=== PATIENT | female | born 1970 | race Caucasian/White ===

== ENCOUNTER → 2018-05-24 08:07 | Outpatient (CLI) | payer OTHER, SELFPAY ==
--- NOTE | 2018-05-24 08:08 | DI.US.S_ITS ---
PROCEDURE: US RENAL COMPLETE INDICATIONS: flank pain TECHNIQUE: Real-time scanning was performed of the kidneys and bladder, with image documentation. COMPARISON: [facility], OB COMPLETE LESS THAN 14 WKS, 01/01/2012, 11:05. [facility], OBSTETRICAL LTD, 07/12/2012, 12:39. [facility], RENAL COMPLETE, 12/30/2014, 10:52. [facility], RENAL COMPLETE, 04/03/2014, 10:33. FINDINGS: Kidneys: Kidneys are normal in size. Right kidney measures 11.1 cm long; left kidney measures 12.1 cm long. Right renal cortical thickness is 1.7 cm; left renal cortical thickness is 2.0 cm. Renal cortical echotexture is normal. No hydronephrosis or nephrolithiasis. No suspicious solid mass lesions. There is a small echogenic focus within the anterior cortex of the right mid kidney, measuring up to 6 x 7 x 6 mm. This has been previously present in 2013 and 2014 with no significant change in size. Bladder: Pre-void bladder volume is 214 mL. Post-void residual is 31 mL. Pre-void images demonstrate no intraluminal masses or stones. On pre-void images, bilateral ureteral jets are noted with color Doppler interrogation. (Of note, ureteral jets may not be detectable in up to 25% of cases due to insufficient differences in specific gravity between ureteral and bladder urine). Miscellaneous: No free pelvic fluid. IMPRESSION: A definite source of flank pain is not seen. Incidental note is again made of an echogenic focus within the right mid kidney consistent with angiomyolipoma stable over time from 04/03/14 and 12/30/14. Normal bladder function. Dictated by: Ramirez Marti M.D. on 05/24/2018 at 10:14 Approved by: Ramirez Marti M.D. on 05/24/2018 at 10:18
== END ==
PROVIDERS: PCP Family Medicine; Visit Provider Family Medicine
DX: D30.01 Benign neoplasm of right kidney (principal)
CPT/HCPCS: 76770

== ENCOUNTER → 2018-12-27 10:35 | Outpatient (CLI) | payer OTHER, SELFPAY ==
--- NOTE | 2018-12-27 | DI.US.S_ITS ---
PROCEDURE: US THYROID INDICATIONS: NONTOXIC MULTINODULAR GOITER TECHNIQUE: Real-time scanning was performed of the thyroid gland, with image documentation. COMPARISON: [facility], US, THYROID, 12/30/2014, 11:01. FINDINGS: Right: Thyroid lobe measures 6.2 x 2.4 x 2.1 cm, and is homogeneous in echotexture. Left: Thyroid lobe measures 6.2 x 1.9 x 2.1 cm, and is homogenous in echotexture. Isthmus: 8-9 mm thick. Nodule number: 1 Location: Right middle lobe Size: 1.5 x 1.5 x 1.2 cm. (previously 0.9 x 0.9 x 0.7 cm) Composition: Solid Echogenicity: Hypoechoic Shape: wider than tall. Margins: Smooth Echogenic foci: None Total points: 4 ACR TI-RADS category: Moderately suspicious IMPRESSION: Right thyroid nodule as above. Given increase in size, ultrasound-guided FNA recommended ACR TI-RADS definitions and recommendations: TI-RADS 1 (benign): 0 points. FNA not needed. TI-RADS 2 (not suspicious): 2 points. FNA not needed. TI-RADS 3 (mildly suspicious): 3 points. * FNA if 2.5 cm or larger, follow up if 1.5 cm or larger (at 1, 3, and 5 years). TI-RADS 4 (moderately suspicious): 4-6 points. * FNA if 1.5 cm or larger, follow up if 1 cm or larger (at 1, 2, 3, and 5 years). TI-RADS 5 (highly suspicious): 7 points or more. * FNA if 1 cm or larger, follow up if 0.5 cm or larger (every year for 5 years). Dictated by: Dung Welsh M.D. on 12/27/2018 at 14:44 Approved by: Dung Welsh M.D. on 12/27/2018 at 14:47
[2018-12-27 13:29] LABS: TSH w/ Reflex to FT4 0.61 uIU/mL (0.47-4.68)
== END ==
PROVIDERS: PCP Family Medicine; Visit Provider Nurse Practitioner
DX: E04.1 Nontoxic single thyroid nodule (principal)
CPT/HCPCS: 36415; 76536; 84443

== ENCOUNTER → 2019-01-02 14:25 | Outpatient (CLI) | payer OTHER, SELFPAY ==
--- NOTE | 2019-01-02 14:26 | DI.RAD.S_ITS ---
PROCEDURE: XR KNEE LT 3V INDICATIONS: anterior knee pain, exam suggests chrondromalacia patella TECHNIQUE: 3 views of the knee were acquired. COMPARISON: None. FINDINGS: Bones: No fractures or dislocations. No suspicious bony lesions. Soft tissues: No joint effusion. No suspicious soft tissue calcifications. IMPRESSION: Negative exam. No osseous abnormality demonstrated. Dictated by: Tae Sheth M.D. on 01/02/2019 at 14:53 Approved by: Tae Sheth M.D. on 01/02/2019 at 14:54
== END ==
PROVIDERS: PCP Family Medicine; Visit Provider Family Medicine
DX: M22.42 Chondromalacia patellae, left knee (principal); M25.562 Pain in left knee
CPT/HCPCS: 73562

== ENCOUNTER → 2019-05-02 10:59 | Outpatient (CLI) | payer OTHER, SELFPAY ==
[2019-05-02 12:52] LABS: Free T3, Triiodothyronine Free 2.81 pg/mL (2.77-5.27)
[2019-05-02 13:05] LABS: Thyroid Stimulating Hormone 1.54 uIU/mL (0.47-4.68)
== END ==
PROVIDERS: PCP Family Medicine; Visit Provider Family Medicine
DX: Z90.09 Acquired absence of other part of head and neck (principal)
CPT/HCPCS: 36415; 84439; 84443; 84481

== ENCOUNTER → 2020-03-03 16:13 | Outpatient (CLI) | payer OTHER, SELFPAY ==
--- NOTE | 2020-03-03 | DI.MG.S_ITS ---
BILATERAL DIGITAL SCREENING MAMMOGRAM 3D/2D WITH CAD: 03/03/2020 CLINICAL: Routine screening. Comparison is made to exams dated: 07/25/2017 mammogram, 06/29/2017 mammogram - [facility], 09/03/2014 mammogram, and 10/27/2010 mammogram - [facility]. There are scattered fibroglandular elements in both breasts. Current study was also evaluated with a Computer Aided Detection (CAD) system. There is a biopsy clip in both breasts. No significant masses, calcifications, or other findings are seen in either breast. There has been no significant interval change. IMPRESSION: NEGATIVE There is no mammographic evidence of malignancy. A 1 year screening mammogram is recommended. This exam was interpreted at Station ID: [id number]. NOTE: For mammograms, a report in lay terms will be sent to the patient. Approximately 15% of breast malignancies will not be visualized mammographically. In the management of a palpable breast mass, a negative mammogram must not discourage biopsy of a clinically suspicious lesion. Electronically Signed By: Tae lofton/george:03/03/2020 17:05:10 letter sent: Normal Exam ACR BI-RADS Category 1: Negative 3341F
== END ==
PROVIDERS: PCP Family Medicine; Referring Provider Family Medicine; Visit Provider Family Medicine
DX: Z12.31 Encounter for screening mammogram for malignant neoplasm of breast (principal)
CPT/HCPCS: 77063; 77067

== ENCOUNTER → 2020-05-08 11:30 | Outpatient (CLI) | payer OTHER, SELFPAY | PROVIDERS: PCP Family Medicine; Referring Provider Family Medicine; Visit Provider Family Medicine | DX: N39.0 Urinary tract infection, site not specified (principal) | CPT/HCPCS: 87077; 87086; 87186 ==

== ENCOUNTER → 2021-12-22 13:38 | Outpatient (CLI) | payer OTHER, SELFPAY | PROVIDERS: PCP Family Medicine; Visit Provider Physician Assistant | DX: J02.9 Acute pharyngitis, unspecified (principal) | CPT/HCPCS: 87070 ==

== ENCOUNTER → 2021-12-30 09:59 | Outpatient (CLI) | payer OTHER, SELFPAY ==
[2021-12-30 11:00] LABS: Add Manual Diff / Slide Review NO; Basophils Absolute Auto 0 /uL (0-100); Basophils Percent Auto 0.5 % (0-2); Eosinophils Absolute Auto 300 /uL (0-450); Eosinophils Percent Auto 3.9 % (2-4); Hematocrit 35.3 % (36-46); Hemoglobin 11.7 g/dL (12.0-16.0); Lymphocytes Absolute Auto 1600 /uL (1100-4500); Lymphocytes Percent Auto 23.6 % (25-40); Mean Corpuscular HGB Conc 33.3 % (30-36); Mean Corpuscular Hemoglobin 27.7 PG (26-34); Mean Corpuscular Volume 83.2 fL (80-100); Monocytes Absolute Auto 400 /uL (0-900); Neutrophils Absolute Auto 4400 /uL (1500-7000); Platelet Count 277 X10^3/uL (150-400); Red Blood Cell Count 4.24 X10^6/uL (4.0-5.2); Red Cell Distribution Width 13.9 % (11.6-14.8); White Blood Cell Count 6.7 X10^3/uL (4.5-11.0)
[2021-12-30 11:45] LABS: Alanine Aminotransferase 22 IU/L (<35); Albumin 4.1 g/dL (3.5-5.0); Albumin Globulin Ratio 1.2 (1.0-2.8); Alkaline Phosphatase 78 U/L (38-126); Aspartate Aminotransferase 22 IU/L (14-36); BUN Creatinine Ratio 16.2 (6-22); Bilirubin Total 0.4 mg/dL (0.2-1.3); Blood Urea Nitrogen 11 mg/dL (7-17); Calcium 8.7 mg/dL (8.4-10.2); Carbon Dioxide 27 mmol/L (22-32); Chloride 102 mmol/L (98-107); Cholesterol 147 mg/dL (140-199); Estimated Glomerular Filt Rate > 60 mL/min (>60); Globulin 3.3 g/dL (1.7-4.1); Glucose 101 mg/dL (70-100); HDL Cholesterol 48 mg/dL (40-60); HEMOLYSIS < 15 (0-50); LDL Cholesterol Calculated 88 mg/dL (<100); Potassium 4.2 mmol/L (3.4-5.1); Sodium 134 mmol/L (137-145); Total Protein 7.4 g/dL (6.3-8.2); Triglycerides 53 mg/dL (35-150)
[2021-12-30 12:05] LABS: Free T3, Triiodothyronine Free 3.46 pg/mL (2.77-5.27); Free T4, Direct Thyroxine 1.07 ng/dL (0.78-2.19)
[2021-12-30 12:19] LABS: TSH w/ Reflex to FT4 0.77 uIU/mL (0.47-4.68)
== END ==
PROVIDERS: PCP Family Medicine; Referring Provider Family Medicine; Visit Provider Family Medicine
DX: E07.9 Disorder of thyroid, unspecified (principal); E89.0 Postprocedural hypothyroidism; F33.42 Major depressive disorder, recurrent, in full remission; R51.9 Headache, unspecified
CPT/HCPCS: 36415; 80053; 80061; 84439; 84443; 84481; 85025

== ENCOUNTER → 2022-02-01 09:16 | Outpatient (CLI) | payer OTHER, SELFPAY ==
--- NOTE | 2022-02-01 09:19 | DI.MG.S_ITS ---
BILATERAL DIGITAL SCREENING MAMMOGRAM 3D/2D WITH CAD: 02/01/2022 CLINICAL: Routine screening. Comparison is made to exams dated: 03/03/2020 mammogram and 06/29/2017 mammogram - [facility]. There are scattered areas of fibroglandular density in both breasts (category b / 25%-50% glandular tissue). Current study was also evaluated with a Computer Aided Detection (CAD) system. There is a biopsy clip in both breasts. No significant masses, calcifications, or other findings are seen in either breast. There has been no significant interval change. IMPRESSION: NEGATIVE There is no mammographic evidence of malignancy. A 1 year screening mammogram is recommended. Based on the Tyrer Cuzick model (a risk assessment model) the patient's lifetime risk is 9.6% and her 10 year risk is 2.5%. According to the ACR, ACS, and NCCN guidelines, an annual breast MRI exam along with mammogram is recommended if the patient's lifetime risk is 20% or greater. This exam was interpreted at Station ID: [id number]. NOTE: For mammograms, a report in lay terms will be sent to the patient. Approximately 15% of breast malignancies will not be visualized mammographically. In the management of a palpable breast mass, a negative mammogram must not discourage biopsy of a clinically suspicious lesion. Electronically Signed By: Tae lofton/george:02/01/2022 09:55:21 letter sent: Normal Exam ACR BI-RADS Category 1: Negative 3341F
== END ==
PROVIDERS: PCP Family Medicine; Referring Provider Family Medicine; Visit Provider Family Medicine
DX: Z12.31 Encounter for screening mammogram for malignant neoplasm of breast (principal)
CPT/HCPCS: 77063; 77067

== ENCOUNTER → 2022-03-20 08:33 | Outpatient (CLI) | payer OTHER, SELFPAY ==
[2022-03-20 10:32] LABS: Clostridium Difficile Tox PCR Negative for C. diff (Negative)
== END ==
PROVIDERS: PCP Family Medicine; Referring Provider Nurse Practitioner Family; Visit Provider Nurse Practitioner Family
DX: R19.7 Diarrhea, unspecified (principal)
CPT/HCPCS: 87045; 87329; 87493; 87899

== ENCOUNTER → 2022-03-25 09:50 | Outpatient (CLI) | payer OTHER, SELFPAY | PROVIDERS: PCP Family Medicine; Referring Provider Family Medicine; Visit Provider Family Medicine | DX: K52.9 Noninfective gastroenteritis and colitis, unspecified (principal) | CPT/HCPCS: 87177 ==

== ENCOUNTER → 2022-05-12 15:26 | Outpatient (CLI) | payer OTHER, SELFPAY ==
[2022-05-12 16:40] LABS: COVID19 -Nasal RAPID Negative (Negative)
== END ==
PROVIDERS: PCP Family Medicine; Visit Provider Surgery
DX: Z01.812 Encounter for preprocedural laboratory examination (principal); Z20.822 Contact with and (suspected) exposure to COVID-19
CPT/HCPCS: 87635; C9803

== ENCOUNTER 2022-05-15 10:43 | Day surgery (SDC) | payer OTHER, SELFPAY ==
[2022-05-15] VITALS (8 sets, daily range): BP systolic 82–124; BP diastolic 43–69; PULSE 58–76; RESP 12–16; TEMP 36.1–36.8; O2SAT 94–99; BMI 26.6
[2022-05-15] MEDS: LACTATED RINGERS 1,000 ML 84 ML IV (11:18)
--- NOTE | 2022-05-15 11:39 | PM.HP.1 ---
History of Present Illness History of Present Illness Date Patient Seen: 05/15/22 Time Patient Seen: 11:39 Chief complaint: SCREENING COLONOSCOPY Narrative: First colonoscopy for colon cancer screening. no family history for colon cancer. No symptoms Patient History Medical History Depression depression (2012) Thyroid mass (2009) Vaginal delivery Surgical History No history of previous surgery (02/08/15) Family & Social History Family History Father Hypertension High cholesterol Heart attack Grandfather Cancer Lung cancer Grandmother Age: 99 Dementia Grandmother Stroke Mother No problems noted. Grandfather No problems noted. Sister No problems noted. Social History: household members spouse,family lives independently Yes caregiver/support person No Tobacco & Substance use: Smoking Status Never smoker alcohol intake current alcohol intake frequency holiday/special occasion Substance Use Type does not use Meds Home Medications and Allergies Home Medications Medication Instructions Recorded Confirmed Type sertraline 50 mg tablet 50 mg PO DAILY #90 tabs 05/11/22 05/15/22 Rx Allergies Allergy/AdvReac Type Severity Reaction Status Date / Time No Known Drug Allergies Allergy Verified 05/15/22 10:59 Review of Systems Review of Systems ROS: Yes All systems reviewed with the patient and are negative except as otherwise documented Exam Vital Signs (past 8 hours): - 05/15/22 11:08 Temperature 97.1 F L Pulse Rate 76 Respiratory Rate 16 Blood Pressure 124/69 Pulse Oximetry 99 Oxygen Delivery Method Room Air Oxygen Delivery Method Room Air Const General: cooperative and healthy appearing [facility] Head: normal to inspection, normocephalic and atraumatic Throat: posterior oropharynx normal Eyes General: appearance normal, both eyes and all related structures Neck Neck: trachea midline Chest Chest: normal inspection of the chest Resp Effort & Inspection: normal respiratory effort and able to speak in complete sentences Cardio Rate: regular rate Rhythm: regular rhythm GI Inspection: normal to inspection Palpation: soft Skin General: turgor normal Neuro General: patient oriented x3 Cognition: normal cognition Extrem General: full ROM Psych Mental Status: mental status grossly normal Judgment: judgment good Assessment & Plan Assessment & Plan narrative: colon cancer screening using moderate sedation. COVID-19 COVID-19 status: Negative Time Spent With Patient Time with patient: less than 30 minutes Critical Care time: I spent a total of [] minutes of critical care time on this patient's care today; this time is exclusive of procedural time.
--- NOTE | 2022-05-15 11:46 | PM.OP.COLON ---
Operative Date/Time/Diagnoses Date of procedure: 05/15/22 Time of procedure: 11:46 Pre-op diagnosis: colon cancer screening Post-op diagnosis: same Procedure & Clinicians Study performed: colonoscopy Same procedure as scheduled: Yes Indications: colon cancer screening Surgeon: Susu Martinez Procedure Notes Procedure in detail: Preop diagnosis: Colon cancer screening Postop diagnosis: Same Operative procedure: Colonoscopy with moderate sedation Surgeon: Rachael Martinez MD Anesthetic: Versed 5 mg fentanyl 125 mcg Findings: No polyps. No diverticulosis. Procedure: Patient placed in a lateral position. Rectal exam performed showing normal tone no masses. Colonoscope inserted into the rectum and advanced to ileocecal valve with minimal difficulty. Insufflation extraction scope and the above findings. Retroflex was included in the rectum. Impression: Normal colonoscopy. No polyps identified Plan: Repeat colonoscopy in 10 years unless otherwise indicated by change in clinical condition Sedation minutes: 13 Specimen(s): none sent Complications: none Impression: No polyps, no diverticulosis Post-procedure Recommendations: Colonoscopy in 10 years Follow up: as needed Disposition: PACU
[2022-05-15] MEDS: fentaNYL 100 MCG/2 ML INJ 125 MCG IM (11:52)
[2022-05-15] MEDS: MIDAZOLAM 5 MG/5 ML VIAL IV (11:52)
== END 2022-05-15 12:50 | disposition home or self-care (01) ==
PROVIDERS: PCP Family Medicine; Referring Provider Surgery; Visit Provider Surgery
PROC: 0DJD8ZZ Inspection of Lower Intestinal Tract, Via Natural or Artificial Opening Endoscopic (ICD-10-PCS; CPT 45378; principal; 2022-05-15 13:15)
DX: Z12.11 Encounter for screening for malignant neoplasm of colon (principal)
CPT/HCPCS: 45378; J2250; J3010

== ENCOUNTER → 2022-06-13 10:16 | Outpatient (CLI) | payer OTHER, SELFPAY ==
--- NOTE | 2022-06-13 10:17 | DI.US.S_ITS ---
PROCEDURE: US RENAL COMPLETE INDICATIONS: KIDNEY LIPOMA TECHNIQUE: Real-time scanning was performed of the kidneys and bladder, with image documentation. COMPARISON: [facility], , RENAL COMPLETE, 05/24/2018, 8:46. FINDINGS: Kidneys: Kidneys are normal in size. Right kidney measures 11 cm long; left kidney measures 10.9 cm long. Right renal cortical thickness is 1.3 cm; left renal cortical thickness is 1.8 cm. Renal cortical echotexture is normal. No nephrolithiasis. No suspicious solid mass lesions. No joseline hydronephrosis is seen, although there is trace right pelviectasis seen. There is a nonshadowing hyperechoic focus within the right kidney cortex that measures up to 6 mm. Previously, this measured up to 7 mm. Bladder: Pre-void bladder volume is 373 mL. Post-void residual is 27 mL. Pre-void images demonstrate no intraluminal masses or stones. On pre-void images, both ureteral jets are noted with color Doppler interrogation. (Of note, ureteral jets may not be detectable in up to 25% of cases due to insufficient differences in specific gravity between ureteral and bladder urine). Miscellaneous: No free pelvic fluid. IMPRESSION: There is a stable nonshadowing hyperechoic lesion involving the right kidney cortex, which is attributed to a benign angiomyolipoma. No joseline hydronephrosis is seen, although there is mild right kidney pelviectasis. Moderate postvoid residual, 27 cc. Dictated by: Jp Bajwa M.D. on 06/13/2022 at 15:36 Approved by: Jp Bajwa M.D. on 06/13/2022 at 15:37
== END ==
PROVIDERS: PCP Family Medicine; Referring Provider Family Medicine; Visit Provider Family Medicine
DX: D17.71 Benign lipomatous neoplasm of kidney (principal)
CPT/HCPCS: 76770

== ENCOUNTER → 2022-09-22 11:09 | Outpatient (CLI) | payer OTHER, SELFPAY ==
--- NOTE | 2022-09-22 11:13 | DI.US.S_ITS ---
PROCEDURE: US RENAL COMPLETE INDICATIONS: 3 MONTH FOLLOW UP RIGHT RENAL ANGIOMYOLIPOMA AND PELVIECTASIS TECHNIQUE: Real-time scanning was performed of the kidneys and bladder, with image documentation. COMPARISON: [facility], RENAL COMPLETE, 04/03/2014, 10:33. [facility], RENAL COMPLETE, 12/30/2014, 10:52. [facility], RENAL COMPLETE, 06/13/2022, 10:28. [facility], RENAL COMPLETE, 05/24/2018, 8:46. FINDINGS: Kidneys: Slight prominence of the renal pelvis is noted bilaterally, essentially resolving to normal after voiding. No urinary tract stone is seen. A previously documented small hyperechoic focus measuring approximately 5 x 6 mm is is again seen at the middle 3rd cortex of the right kidney, with earliest documentation of this structure on the earliest available renal ultrasound 04/03/14. Bladder: Normal, with normal bilateral ureteral jets identified and postvoid bladder volume of 25 cc. Miscellaneous: No free pelvic fluid. IMPRESSION: Longstanding stable small angiomyolipoma measuring approximately 5 x 6 mm at the mid kidney cortex on the right, present at least since 2013. No follow-up recommended. The caliber of the renal pelvis bilaterally is slightly prominent but in the range of normal variation, and there is no suspicion for presence of urinary tract stone or bladder urinary retention. No follow-up recommended. Dictated by: Ramirez Marti M.D. on 09/22/2022 at 14:14 Approved by: Ramirez Marti M.D. on 09/22/2022 at 14:21
== END ==
PROVIDERS: PCP Family Medicine; Referring Provider Family Medicine; Visit Provider Family Medicine
DX: C64.9 Malignant neoplasm of unspecified kidney, except renal pelvis (principal); N28.89 Other specified disorders of kidney and ureter; D17.71 Benign lipomatous neoplasm of kidney
CPT/HCPCS: 76770

== ENCOUNTER → 2023-04-17 11:11 | Outpatient (CLI) | payer OTHER, SELFPAY ==
--- NOTE | 2023-04-17 | DI.MG.S_ITS ---
BILATERAL DIGITAL SCREENING MAMMOGRAM 3D/2D WITH CAD: 04/17/2023 CLINICAL: Routine screening. Comparison is made to exams dated: 02/01/2022 mammogram, 03/03/2020 mammogram, 07/13/2017 mammogram, and 06/29/2017 mammogram - [facility]. There are scattered areas of fibroglandular density in both breasts (category b / 25%-50% glandular tissue). Current study was also evaluated with a Computer Aided Detection (CAD) system. There is a biopsy clip in both breasts. No significant masses, calcifications, or other findings are seen in either breast. There has been no significant interval change. IMPRESSION: NEGATIVE There is no mammographic evidence of malignancy. A 1 year screening mammogram is recommended. Based on the Tyrer Cuzick model (a risk assessment model) the patient's lifetime risk is 9.5% and her 10 year risk is 2.6%. According to the ACR, ACS, and NCCN guidelines, an annual breast MRI exam along with mammogram is recommended if the patient's lifetime risk is 20% or greater. This exam was interpreted at Station ID: [id number]. NOTE: For mammograms, a report in lay terms will be sent to the patient. Approximately 15% of breast malignancies will not be visualized mammographically. In the management of a palpable breast mass, a negative mammogram must not discourage biopsy of a clinically suspicious lesion. Electronically Signed By: Mekhi jensen/george:04/17/2023 12:54:07 letter sent: Normal Exam ACR BI-RADS Category 1: Negative 3341F
== END ==
PROVIDERS: PCP Family Medicine; Referring Provider Family Medicine; Visit Provider Family Medicine
DX: Z12.31 Encounter for screening mammogram for malignant neoplasm of breast (principal)
CPT/HCPCS: 77063; 77067

== ENCOUNTER → 2023-06-21 11:25 | Outpatient (CLI) | payer OTHER, SELFPAY ==
[2023-06-21 12:35] LABS: Add Manual Diff / Slide Review NO; Basophils Absolute Auto 0 /uL (0-100); Basophils Percent Auto 0.6 % (0-2); Eosinophils Absolute Auto 300 /uL (0-450); Eosinophils Percent Auto 3.8 % (2-4); Hematocrit 36.7 % (36-46); Hemoglobin 12.3 g/dL (12.0-16.0); Lymphocytes Absolute Auto 1600 /uL (1100-4500); Lymphocytes Percent Auto 23.2 % (25-40); Mean Corpuscular HGB Conc 33.5 % (30-36); Mean Corpuscular Hemoglobin 28.2 PG (26-34); Mean Corpuscular Volume 84.1 fL (80-100); Monocytes Absolute Auto 400 /uL (0-900); Monocytes Percent Auto 5.9 % (3-14); Neutrophils Absolute Auto 4500 /uL (1500-7000); Neutrophils Percent Auto 66.5 % (50-75); Platelet Count 258 X10^3/uL (150-400); Red Blood Cell Count 4.36 X10^6/uL (4.0-5.2); Red Cell Distribution Width 14.6 % (11.6-14.8); White Blood Cell Count 6.8 X10^3/uL (4.5-11.0)
[2023-06-21 13:38] LABS: Vitamin D 25 Hydroxy (D3) 34.2 ng/mL (30.0-100.0)
[2023-06-21 14:04] LABS: Vitamin B12 757 pg/mL (239-931)
== END ==
LOC: LAB 11:26
PROVIDERS: PCP Family Medicine; Referring Provider Family Medicine; Visit Provider Family Medicine
DX: R53.83 Other fatigue (principal)
CPT/HCPCS: 36415; 82306; 82607; 85025

== ENCOUNTER 2024-02-16 12:08 | Emergency (ER) | payer OTHER, SELFPAY ==
[2024-02-16 12:21] VITALS: BP 112/69; PULSE 74; RESP 16; TEMP 37; O2SAT 98; BMI 27.4
--- NOTE | 2024-02-16 12:41 | DI.CT.S_ITS ---
PROCEDURE: CT HEAD/BRAIN WO CON INDICATIONS: Fell off a log hit her head on the log large acoustic feels TECHNIQUE: Noncontrast 4.5 mm thick angled axial sections acquired from the foramen magnum to the vertex, with coronal and sagittal reformats. For radiation dose reduction, the following was used: automated exposure control, adjustment of mA and/or kV according to patient size. COMPARISON: [facility], CT, CT CERVICAL SPINE WO CON, 02/16/2024, 12:55. FINDINGS: Image quality: Diagnostic. CSF spaces: Basal cisterns are patent. No extra-axial fluid collections. Ventricles are normal in size and shape. Brain: No midline shift. No intracranial masses or hemorrhage. Lai-white matter interface is normal. Skull and face: Calvarium and visualized facial bones are intact, without suspicious lesions. Sinuses: Visualized sinuses and mastoids are clear. IMPRESSION: No acute intracranial pathology. Dictated by: Florentino Guido M.D. on 02/16/2024 at 12:12 Approved by: Florentino Guido M.D. on 02/16/2024 at 12:15
--- NOTE | 2024-02-16 12:51 | ED.FALL ---
HPI - Fall <Jennifer Mckay PA-C - Last Filed: 02/16/24 13:55> General Chief Complaint: Fall Stated Complaint: Fall, hit head, dizziness, nausea Time Seen by Provider: 02/16/24 12:41 Source: patient Mode of arrival: Ambulatory History of Present Illness HPI Narrative: Patient is a very pleasant 53-year-old female presents to the emergency department with her family. Patient was out with family, she was standing on a log, with her daughter when she lost her balance and fell off a log then striking the right side of her occipital area on another log. There was no loss of consciousness. She sustained a large occipital hematoma,. However she has had nausea, headache, and felt just little unsteady, foggy and not herself. Her is an EMT, and suggested that she be evaluated in the emergency room department. She presents to the emergency department with the above complaints. She does not know she needs a head CT your should just go home and rest. She came in for reassurance and evaluation. She has had no vomiting but has felt nauseous. No visual changes. Mild headache. Nothing for pain prior to being seen here in the emergency department. She has had ice that has been applied to the right occipital area. No other physical complaints. Related Data Previous Rx's Medication Instructions Recorded sertraline 50 mg tablet 75 mg (1.5 x 50 mg) PO DAILY #135 06/04/23 tabs bupropion HCl 150 mg 24 hr tablet, 150 mg PO QAM #30 tabs 02/05/24 extended release (Wellbutrin XL) ondansetron HCl 4 mg tablet 4 mg PO Q8-12H PRN nausea and 02/16/24 vomiting #10 tabs Allergies Allergy/AdvReac Type Severity Reaction Status Date / Time No Known Drug Allergies Allergy Verified 02/16/24 12:26 Review of Systems <Jennifer Mckay PA-C - Last Filed: 02/16/24 13:55> Review of Systems Narrative: Negative except as above Gastrointestinal Comments: Nausea no vomiting Musculoskeletal Comments: Occipital scalp hematoma Neurologic Comments: Feels foggy and not herself Feels unsteady Headache Patient History <Jennifer Mckay PA-C - Last Filed: 02/16/24 13:55> Medical History ADHD Willa's thyroiditis Depression affecting in third trimester, antepartum depression (2013) Depression Thyroid mass (2010) Vaginal delivery Surgical History No history of previous surgery (02/08/15) Family History Father Hypertension High cholesterol Heart attack Grandfather Cancer Lung cancer Grandmother Age: 101 Dementia Grandmother Stroke Mother No problems noted. Grandfather No problems noted. Sister No problems noted. Social History marital status: number of children: 1 household members: spouse and family lives independently: Yes caregiver/support person: No housing: house education level: college occupational status: unemployed Smoking Status: Never smoker second hand exposure: No alcohol intake: current substance use type: does not use Smoking Status: Never smoker alcohol intake frequency: holidays/special occasions only Substance Use Type: does not use Exam <Jennifer Mckay PA-C - Last Filed: 02/16/24 13:55> Initial Vital Signs Initial Vital Signs: Vital Signs Temperature 98.6 F 02/16/24 12:21 Pulse Rate 74 02/16/24 12:21 Respiratory Rate 16 02/16/24 12:21 Blood Pressure 112/69 02/16/24 12:21 Pulse Oximetry 98 02/16/24 12:21 Oxygen Delivery Method Room Air 02/16/24 12:21 Const General: cooperative, healthy appearing, comfortable, well developed, well groomed, No acute distress and No in distress Nutritional Appearance: average body habitus Orientation: Orientation [facility] Head: normal to inspection, contusion, hematoma (Right occipital) and scalp tenderness (Right occipital patient has a large goose egg) Eyes General: Yes appearance normal, both eyes and all related structures Eyelids: eyelids normal Conjunctivae: conjunctivae normal Sclera: sclerae normal Pupils: PERRL EOM: EOM intact bilaterally Neck Other: Mild neck tenderness, full range of motion, most likely associated musculoskeletal however with the fall we will do a CT of her cervical spine Back/Spine/Pelvis Cervical Spine: cervical ROM normal, cervical muscular tenderness, No cervical spinal tenderness and other (Due to the mechanism and that she has some discomfort with palpation will a) Neuro General: patient alert, patient awake, patient oriented x3, oriented and gait normal Cranial Nerves: CN's II-XI intact bilaterally, PERRL and EOM intact bilaterally Cognition: normal cognition Speech: speech normal Gait: normal gait Extrem Other: Upper and lower extremities range of motion, strength, pulses, cap refill preserved in the upper and lower extremities Psych Appearance: grossly normal and well kempt Mental Status: mental status grossly normal Speech and Movement: speech and movement normal Mood: congruent mood Affect: normal affect Attitude: cooperative Thought Process: normal Judgment: judgment good <DO Matthew Culver Last Filed: 02/16/24 14:00> Initial Vital Signs Initial Vital Signs: Vital Signs Temperature 98.6 F 02/16/24 12:21 Pulse Rate 74 02/16/24 12:21 Respiratory Rate 16 02/16/24 12:21 Blood Pressure 112/69 02/16/24 12:21 Pulse Oximetry 98 02/16/24 12:21 Oxygen Delivery Method Room Air 02/16/24 12:21 Scores <Jennifer Mckay PA-C - Last Filed: 02/16/24 13:55> GCS Citation: 15 Nexus Score for C-Spine Citation:: Consider imaging Course <Jennifer Mckay PA-C - Last Filed: 02/16/24 13:55> Orders Ordered: ED Orders 02/16/24 12:41 CT head/brain wo con Stat 02/16/24 12:50 CT cervical spine wo con Stat Discontinued Medications Acetaminophen (Acetaminophen 325 Mg Tablet) 650 mg PO NOW ONE Stop: 02/16/24 12:51 Last Admin: 02/16/24 13:11 Dose: 650 mg Documented By: VIJAY Ondansetron HCl (Ondansetron 4 Mg Odt) 4 mg SL NOW ONE Stop: 02/16/24 12:51 Last Admin: 02/16/24 13:10 Dose: 4 mg Documented By: VIJAY Vital Signs Vital signs: Vital Signs - 8 hr 02/16/24 12:21 Temperature 98.6 F Pulse Rate 74 Respiratory Rate 16 Blood Pressure 112/69 Pulse Oximetry 98 Oxygen Delivery Method Room Air Reviewed <DO Matthew Culver Last Filed: 02/16/24 14:00> Orders Ordered: ED Orders 02/16/24 12:41 CT head/brain wo con Stat 02/16/24 12:50 CT cervical spine wo con Stat Discontinued Medications Acetaminophen (Acetaminophen 325 Mg Tablet) 650 mg PO NOW ONE Stop: 02/16/24 12:51 Last Admin: 02/16/24 13:11 Dose: 650 mg Documented By: VIJAY Ondansetron HCl (Ondansetron 4 Mg Odt) 4 mg SL NOW ONE Stop: 02/16/24 12:51 Last Admin: 02/16/24 13:10 Dose: 4 mg Documented By: VIJAY Vital Signs Vital signs: Vital Signs - 8 hr 02/16/24 12:21 Temperature 98.6 F Pulse Rate 74 Respiratory Rate 16 Blood Pressure 112/69 Pulse Oximetry 98 Oxygen Delivery Method Room Air MDM - Fall <Jennifer Mckay PA-C - Last Filed: 02/16/24 13:55> Imaging Data CT - cervical spine: Radiologist's Impression: [place] [address] CT Scan Report Signed Patient: Terra Cortez MR#: [id number] : 1970 Acct:[id number] Age/Sex: 53 / F Date of Service: 02/16/24 Loc: ED Accession Number: [id number] Procedure: CT cervical spine wo con Ordering Provider: Jennifer Mckay PA-C PROCEDURE: CT CERVICAL SPINE WO CON INDICATIONS: fall TECHNIQUE: Noncontrast 3 mm thick sections acquired from the skull base to the T4 level. Sagittal and coronal reformats were then constructed. For radiation dose reduction, the following was used: automated exposure control, adjustment of mA and/or kV according to patient size. COMPARISON: None. FINDINGS: Image quality: Excellent. Bones: No fractures or dislocations. Visualized superior ribs are intact. Soft tissues: Prevertebral soft tissues are normal in thickness. No paravertebral hematomas. No apical pneumothoraces. Large left thyroid nodule. IMPRESSION: No displaced fracture or traumatic subluxation. Large left thyroid nodule. Recommend nonemergent ultrasound evaluation if not previously obtained. Dictated by: Florentino Guido M.D. on 02/16/2024 at 12:15 Approved by: Florentino Guido M.D. on 02/16/2024 at 12:18 CT scan - head: Radiologist's Impression: [address] [address] [address] Scan Report Signed Patient: Terra Cortez MR#: [id number] : 1970 Acct:[id number] Age/Sex: 53 / F Date of Service: 02/16/24 Loc: ED Accession Number: [id number] Procedure: CT head/brain wo con Ordering Provider: Jennifer Mckay PA-C PROCEDURE: CT HEAD/BRAIN WO CON INDICATIONS: Fell off a log hit her head on the log large acoustic feels TECHNIQUE: Noncontrast 4.5 mm thick angled axial sections acquired from the foramen magnum to the vertex, with coronal and sagittal reformats. For radiation dose reduction, the following was used: automated exposure control, adjustment of mA and/or kV according to patient size. COMPARISON: [facility], CT, CT CERVICAL SPINE WO CON, 02/16/2024, 12:55. FINDINGS: Image quality: Diagnostic. CSF spaces: Basal cisterns are patent. No extra-axial fluid collections. Ventricles are normal in size and shape. Brain: No midline shift. No intracranial masses or hemorrhage. Lai-white matter interface is normal. Skull and face: Calvarium and visualized facial bones are intact, without suspicious lesions. Sinuses: Visualized sinuses and mastoids are clear. IMPRESSION: No acute intracranial pathology. Dictated by: Florentino Guido M.D. on 02/16/2024 at 12:12 Approved by: Florentino Guido M.D. on 02/16/2024 at 12:15 [facility] Narrative Medical decision making narrative: 53-year-old female brought to the emergency department by family. Patient was on a log lost her balance fell striking the right parietal area on another log. No loss of consciousness. Large scalp hematoma, feeling off, foggy, nauseous but no vomiting. Brought to the emergency department by her who has an EMT at the patient's request. Signs and symptoms most likely associated with a concussion. However the patient is wary, and just worried. Examination shows she is some mild cervical tenderness, her exam is negative for any substantial acute findings. However the patient would like to be cautious. Head CT and cervical spine are ordered. CT of the head is negative for any acute findings CT of the cervical spine is negative for any acute findings Zofran 4 mg sublingual given for nausea 650 mg of Tylenol p.o. Prescription for Zofran sent to the pharmacy Patient given information that her scans are negative Patient given ED precautions supportive therapy education Patient discharged in stable condition Differential diagnosis; fall, musculoskeletal strain, scalp hematoma, postconcussive syndrome Discharge Plan Departure Patient Disposition: Home Clinical Impression: Hematoma of occipital region of scalp Concussion Qualifiers: Encounter type: initial encounter Loss of consciousness presence/duration: without LOC Qualified Code(s): S06.0X0A - Concussion without loss of consciousness, initial encounter Activity Restrictions/Additional Instructions: CT scan of your cervical spine and head CT are negative for any acute findings. Treatment at home ibuprofen and Tylenol for headache and pain. Ice to the scalp hematoma. Diagnosis of concussion. Unfortunately the symptoms are going to wax and wane. I am able to give you a time. Return to the emergency department as needed. I sent a prescription of Zofran to your pharmacy. Prescriptions: New ondansetron HCl 4 mg tablet 4 mg PO Q8-12H PRN (Reason: nausea and vomiting) Qty: 10 0RF No Action bupropion HCl [Wellbutrin XL] 150 mg tablet extended release 24 hr 150 mg PO QAM Qty: 30 3RF sertraline 50 mg tablet 75 mg PO DAILY Qty: 135 3RF Referrals: Dottie Sutherland MD [Primary Care Provider] - Stand Alone Forms: Patient Portal/API ED Sign-out <Eladio Phillip, DO - Last Filed: 02/16/24 14:00> [facility]ign [facility] Attestation: Dr Phillip Co-Sign Statement: I was available for consultation during this patient's emergency department visit. This chart is signed by myself for administrative purposes only. I did not have direct contact with this patient during this visit. They were seen independently by the APC.
[2024-02-16] MEDS: ONDANSETRON 4 MG ODT SL (13:10)
[2024-02-16] MEDS: ACETAMINOPHEN 325 MG TABLET 650 MG PO (13:11)
== END 2024-02-16 13:55 | disposition home or self-care (01) ==
PROVIDERS: Emergency Provider Physician Assistant; PCP Family Medicine
DX: S06.0X0A Concussion without loss of consciousness, initial encounter (principal); S00.03XA Contusion of scalp, initial encounter; W18.00XA Striking against unspecified object with subsequent fall, initial encounter
CPT/HCPCS: 70450; 72125; 99284

== ENCOUNTER → 2024-02-20 14:13 | Outpatient (CLI) | payer OTHER, SELFPAY ==
--- NOTE | 2024-02-20 14:13 | DI.US.S_ITS ---
PROCEDURE: US THYROID INDICATIONS: follow up thyriod nodule TECHNIQUE: Real-time scanning was performed of the thyroid gland, with image documentation. COMPARISON: [facility], , US THYROID, 12/27/2018, 11:08. FINDINGS: Thyroid: Right lobe is surgically absent. Left lobe measures 7.0 x 2.6 x 2.0 cm. Isthmus measures 1 centimeter in thickness. Enlarged heterogeneous left thyroid lobe. No nodules are seen within the left thyroid lobe. IMPRESSION: Status post right thyroid lobe resection. Left thyroid lobe is enlarged and heterogeneous without defined nodule identified. No enlarged lymph nodes are seen within the visualized neck. Dictated by: Phillip Cyr M.D. on 02/21/2024 at 11:36 Approved by: Phillip Cyr M.D. on 02/21/2024 at 11:39
== END ==
PROVIDERS: PCP Family Medicine; Referring Provider Family Medicine; Visit Provider Family Medicine
DX: E06.3 Autoimmune thyroiditis (principal); E89.0 Postprocedural hypothyroidism; E04.1 Nontoxic single thyroid nodule
CPT/HCPCS: 76536

== ENCOUNTER → 2024-04-02 15:08 | Outpatient (CLI) | payer OTHER, SELFPAY ==
[2024-04-02 16:13] LABS: Alanine Aminotransferase 31 IU/L (<35); Albumin 4.5 g/dL (3.5-5.0); Albumin Globulin Ratio 1.4 (1.0-2.8); Alkaline Phosphatase 71 U/L (38-126); Aspartate Aminotransferase 24 IU/L (14-36); Bilirubin Total 0.3 mg/dL (0.2-1.3); Blood Urea Nitrogen 16 mg/dL (7-17); Calcium 9.1 mg/dL (8.4-10.2); Carbon Dioxide 29 mmol/L (22-32); Chloride 103 mmol/L (98-107); Cholesterol 179 mg/dL (140-199); Estimated Glomerular Filt Rate > 60 mL/min (>60); Globulin 3.2 g/dL (1.7-4.1); Glucose 87 mg/dL (70-100); HDL Cholesterol 73 mg/dL (40-60); HEMOLYSIS < 15 (0-50); LDL Cholesterol Calculated 88 mg/dL (<100); Potassium 3.7 mmol/L (3.4-5.1); Sodium 138 mmol/L (137-145); Total Protein 7.7 g/dL (6.3-8.2); Triglycerides 88 mg/dL (35-150)
[2024-04-02 16:28] LABS: Free T3, Triiodothyronine Free 4.04 pg/mL (2.77-5.27); Free T4, Direct Thyroxine 0.83 ng/dL (0.78-2.19)
[2024-04-02 16:41] LABS: Thyroid Stimulating Hormone 1.44 uIU/mL (0.47-4.68)
[2024-04-07 08:39] LABS: Anti Thyroglobulin Antibody 1.8 IU/mL (0.0-0.9); Thyroid Peroxidase Antibodies 10 IU/mL (0-34)
== END ==
PROVIDERS: PCP Family Medicine; Referring Provider Family Medicine; Visit Provider Family Medicine
DX: Z13.220 Encounter for screening for lipoid disorders (principal); E06.3 Autoimmune thyroiditis; E89.0 Postprocedural hypothyroidism; E07.9 Disorder of thyroid, unspecified; F33.42 Major depressive disorder, recurrent, in full remission; F90.0 Attention-deficit hyperactivity disorder, predominantly inattentive type
CPT/HCPCS: 36415; 80053; 80061; 84439; 84443; 84481; 86376; 86800

== ENCOUNTER → 2025-02-03 10:13 | Outpatient (CLI) | payer OTHER, SELFPAY ==
--- NOTE | 2025-02-03 10:14 | DI.MG.S_ITS ---
MM diagnostic mammo BI, US breast RT limited: 02/03/2025 BI-RADS: 1 CLINICAL: 54-year old female for bilateral diagnostic mammogram and right diagnostic breast ultrasound. Tyrer-Cuzick lifetime risk of 9.8%. No personal or first- degree family history of breast cancer. The patient reports pain (6 months) in the right breast. The patient had prior bilateral breast biopsies. PRIOR EXAMS 04/17/2023, 02/01/2022, 03/03/2020, 07/25/2017, 07/13/2017, 06/29/2017. MAMMOGRAPHY TECHNIQUE: 2D and 3D (tomosynthesis) digital mammographic views obtained, with additional images as needed for full coverage. Current study was also evaluated with a Computer Aided Detection (CAD) system. ULTRASOUND TECHNIQUE: TARGETED Right Breast Ultrasound: Real-time ultrasound exam was performed focused to area of clinical and/or imaging concern. Real-time liu scale imaging of the area of clinical interest was performed with image documentation. DENSITY B. There are scattered areas of fibroglandular density. MAMMOGRAPHY FINDINGS Right (finding-1): Upper Outer Quadrant, Middle depth: A skin marker was placed in the area of concern, and no mammographic abnormalities are identified or to account for concern by the patient of pain/tenderness. No suspicious mass, asymmetry, microcalcification, or other abnormality seen. Left: No suspicious mass, asymmetry, microcalcification, or other abnormality seen. ULTRASOUND FINDINGS Right (finding-1): Upper Outer Quadrant: The area from 9 o'clock to 12 o'clock, 8 cm from the nipple, was scanned. There is no sonographic abnormality to account for concern by the patient of pain/tenderness. IMPRESSION: * No evidence of malignancy. RECOMMENDATIONS Right * Clinical follow-up is recommended, and further management of palpable abnormalities or other focal signs or symptoms should be based on the results of clinical evaluation. If palpable abnormality or other concerning symptom persists or progresses, further clinical evaluation should be considered. Bilateral * Annual screening mammography. COMMENTS: Findings and recommendations were conveyed to the patient during today's evaluation. OVERALL ASSESSMENT CATEGORY BI-RADS-1: Negative. [employer] recommends annual screening mammography beginning at age 40 for women with average risk of breast cancer. ELECTRONICALLY SIGNED: Chantelle Montanez M.D. on 02/03/2025 at 12:20:56 PM PT Interpreting Station ID: [id number]
== END ==
LOC: MAMMO 10:14
PROVIDERS: PCP Family Medicine; Referring Provider Family Medicine; Visit Provider Family Medicine
DX: N64.4 Mastodynia (principal)
CPT/HCPCS: 76642; 77066; G0279